=== PATIENT | male | born 1995 | race Hispanic/Latino ===

== ENCOUNTER 2017-07-26 16:22 | Emergency (ER) | payer OTHER ==
[2017-07-26] MEDS ORDERED: Lidocaine 1% 20 ML MDV ONE (16:43)
== END 2017-07-26 17:36 | disposition home or self-care (01) ==
LOC: SCSER 16:22
DX: S61.211A Laceration without foreign body of left index finger without damage to nail, initial encounter (principal); S61.213A Laceration without foreign body of left middle finger without damage to nail, initial encounter; S61.215A Laceration without foreign body of left ring finger without damage to nail, initial encounter; W26.8XXA Contact with other sharp object(s), not elsewhere classified, initial encounter; Y92.69 Other specified industrial and construction area as the place of occurrence of the external cause
CPT/HCPCS: 12002; J2001

== ENCOUNTER 2017-08-05 14:00 | Emergency (ER) | payer OTHER ==
[2017-08-05] MEDS ORDERED: Adacel (T-DAP) 0.5 ML VIAL ONE (14:47)
== END 2017-08-05 15:08 | disposition home or self-care (01) ==
LOC: SCSER 14:00
DX: S61.215D Laceration without foreign body of left ring finger without damage to nail, subsequent encounter (principal); S61.213D Laceration without foreign body of left middle finger without damage to nail, subsequent encounter; Z79.899 Other long term (current) drug therapy
CPT/HCPCS: 90471; 90715